=== PATIENT | female | born 2000 | race Caucasian/White ===

== ENCOUNTER 2019-02-24 20:25 | Emergency (ER) | payer BC ==
[~2019-02-24] VITALS: Ht 172.7 cm; Wt 136.4 kg
[2019-02-24 20:29] VITALS: Ht 172.7 cm; Wt 136.4 kg
[2019-02-24] MEDS ORDERED: IUD (20:30)
[2019-02-24] MEDS ORDERED: ERYTHROMYCIN OPT1 GM RIGHT EYE (21:11)
[2019-02-24 21:30] VITALS: BP 122/81
== END 2019-02-24 21:30 | disposition home or self-care (01) ==
LOC: D.ER 20:25
DX: S05.01XA Injury of conjunctiva and corneal abrasion without foreign body, right eye, initial encounter (principal); X58.XXXA Exposure to other specified factors, initial encounter